=== PATIENT | male | born 1960 | race Two or more races ===

== ENCOUNTER 2019-01-24 14:43 | Emergency (ER) | payer OTHER ==
[~2019-01-24] VITALS: Ht 170.2 cm; Wt 117.9 kg
[~2019-01-24 14:43] MED LIST: ADULT ASPIRIN81 MG; BISOPROLOL-HCT1 EAC2; CIPRO500 MG PO; CRESTOR5 MG; FIORICET 50-301 EACH PO; IRBESARTAN150 MG; JANUMET XR 50-1 EAC1; KETO10TA2 PO; OMEGA-3 + D SO1 EACH; OMEPRAZOLE20 MG; TRIAMTERENE-HC1 EAC3
== END 2019-01-24 17:53 | disposition home or self-care (01) ==
LOC: ER 14:43
DX: T78.49XA Other allergy, initial encounter (principal); L29.8 Other pruritus

== ENCOUNTER 2019-01-29 02:03 | Emergency (ER) | payer OTHER ==
[~2019-01-29] VITALS: Ht 170.2 cm; Wt 117.9 kg
[2019-01-29] MEDS ORDERED: JANUMET 50-1,01 EACH (02:22)
[2019-01-29] MEDS ORDERED: LOVAZA1 GM (02:22)
[2019-01-29] MEDS ORDERED: OMEPRAZOLE10 MG (02:22)
[2019-01-29] MEDS ORDERED: CRESTOR5 MG (02:23)
[2019-01-29] MEDS ORDERED: ZIAC 2.5-6.251 EACH (02:23)
[2019-01-29] MEDS ORDERED: AVAPRO75 MG (02:24)
[2019-01-29] MEDS ORDERED: ADULT ASPIRIN81 MG (02:25)
[2019-01-29] MEDS ORDERED: TRIAMTERENE-HC1 EAC3 (02:25)
[2019-01-29] MEDS ORDERED: PEPCID AC20 MG PO (08:20)
[2019-01-29] MEDS ORDERED: PHENERGAN25 MG PO (08:20)
== END 2019-01-29 09:19 | disposition home or self-care (01) ==
LOC: ER 02:03
DX: K52.9 Noninfective gastroenteritis and colitis, unspecified (principal)

== ENCOUNTER → 2021-06-27 | Emergency (ER) | payer OTHER ==
[~2021-06-27] VITALS: Ht 170.2 cm; Wt 113.4 kg
[~2021-06-27] MED LIST changes: +AVAPRO75 MG; +JANUMET 50-1,01 EACH; +LOVAZA1 GM; +OMEPRAZOLE10 MG; +PEPCID AC20 MG PO; +PHENERGAN25 MG PO; +ZIAC 2.5-6.251 EACH
== END | disposition home or self-care (01) ==
LOC: ER 18:22
DX: B34.9 Viral infection, unspecified (principal); E86.0 Dehydration; R11.10 Vomiting, unspecified

== ENCOUNTER 2021-09-13 08:00 | Outpatient (CLI) | payer OTHER | END 2021-09-13 08:46 | disposition home or self-care (01) | LOC: PPH VACUNA 08:00 | PROVIDERS: ATTEND Emergency Medicine Pediatric Emergency Medicine | DX: Z23 Encounter for immunization (principal) ==

== ENCOUNTER 2021-10-24 09:36 | Emergency (ER) | payer OTHER ==
[~2021-10-24] VITALS: Ht 170.2 cm; Wt 108.9 kg
== END 2021-10-24 12:23 | disposition home or self-care (01) ==
LOC: ER 09:36
DX: J30.9 Allergic rhinitis, unspecified (principal); B34.9 Viral infection, unspecified

== ENCOUNTER 2022-08-02 09:31 | Outpatient (CLI) | payer OTHER | END 2022-08-02 10:17 | disposition home or self-care (01) | LOC: LAB 09:31 | PROVIDERS: ATTEND Orthopaedic Surgery | DX: D64.9 Anemia, unspecified (principal); E88.9 Metabolic disorder, unspecified; D68.8 Other specified coagulation defects; N39.0 Urinary tract infection, site not specified; A49.02 Methicillin resistant Staphylococcus aureus infection, unspecified site; E11.9 Type 2 diabetes mellitus without complications; I49.9 Cardiac arrhythmia, unspecified; I10 Essential (primary) hypertension; Z76.89 Persons encountering health services in other specified circumstances ==

== ENCOUNTER 2023-10-17 11:20 | Outpatient (CLI) | payer OTHER | END 2023-10-17 11:37 | disposition home or self-care (01) | LOC: MRI 11:20 | PROVIDERS: ATTEND Orthopaedic Surgery | DX: S83.201A Bucket-handle tear of unspecified meniscus, current injury, left knee, initial encounter (principal); M25.561 Pain in right knee; M25.562 Pain in left knee | CPT/HCPCS: 73721 ==

== ENCOUNTER 2025-03-01 00:32 | Emergency (ER) | payer OTHER ==
[~2025-03-01] VITALS: Ht 170.2 cm; Wt 108.9 kg
[2025-03-01] MEDS ORDERED: JARDIANCE25 MG PO (01:03)
[2025-03-01] MEDS ORDERED: LEVO-T50 MCG PO (01:04)
[2025-03-01] MEDS ORDERED: METFORMIN HCL1000 M3 PO (01:04)
[2025-03-01] MEDS ORDERED: HYOSCYAMINE SULFATE 0.125 MG TAB.SUBL SL ONE (02:00)
[2025-03-01] MEDS ORDERED: KETOROLAC TROMETHAMINE 30 MG VIAL IV STA (02:00)
[2025-03-01] MEDS ORDERED: HYOSCYAMINE SULFATE 0.125 MG TAB.SUBL ONE (02:02)
[2025-03-01] MEDS ORDERED: KETOROLAC TROMETHAMINE 30 MG VIAL ONE (02:02)
[2025-03-01 02:37] LABS: HEMATOCRIT 43.8 % (39.0-48.0); HEMOGLOBIN 14.7 g/dL (13-16.00); MEAN CELL VOLUME 99.3 fL (80.0-100.00); MEAN CORPUSCULAR HEMOGLOBIN 33.4 pg (27.00-32.0); MEAN CORPUSCULAR HGB CONC 33.7 g/dl (32.0-36.0); PLATELET COUNT 246 K/uL (150-450); RED BLOOD COUNT 4.41 M/uL (4.00-6.00); RED CELL DISTRIBUTION WIDTH 14.3 % (11.5-14.5)
[2025-03-01] MEDS ORDERED: MORPHINE SULFATE 4 MG/ML VIAL IV STA (03:42)
== END 2025-03-01 06:51 | disposition home or self-care (01) ==
LOC: ER 00:33
DX: R10.9 Unspecified abdominal pain (principal); Z20.822 Contact with and (suspected) exposure to COVID-19; E11.9 Type 2 diabetes mellitus without complications; Z79.84 Long term (current) use of oral hypoglycemic drugs
CPT/HCPCS: 36415; 74022; 74176; 96365; 99284; J1885; J2270

== ENCOUNTER 2025-03-03 15:53 | Emergency (ER) | payer OTHER ==
[~2025-03-03] VITALS: Ht 373.4 cm; Wt 108.9 kg
[~2025-03-03 15:53] MED LIST changes: +JARDIANCE25 MG PO; +LEVO-T50 MCG PO; +METFORMIN HCL1000 M3 PO
[2025-03-03] MEDS ORDERED: MORPHINE SULFATE 4 MG/ML VIAL IV ONE (17:30)
[2025-03-03] MEDS ORDERED: KETOROLAC TROMETHAMINE 60 MG VIAL IM ONE ×2 (17:30→17:46)
[2025-03-03 18:04] LABS: HEMATOCRIT 45.5 % (39.0-48.0); HEMOGLOBIN 15.9 g/dL (13-16.00); MEAN CELL VOLUME 97.3 fL (80.0-100.00); MEAN CORPUSCULAR HEMOGLOBIN 33.9 pg (27.00-32.0); MEAN CORPUSCULAR HGB CONC 34.9 g/dl (32.0-36.0); PLATELET COUNT 261 K/uL (150-450); RED BLOOD COUNT 4.67 M/uL (4.00-6.00)
[2025-03-03 18:29] LABS: ALBUMIN 3.7 gm/dL (3.4-5.0); BILIRUBIN TOTAL 0.29 mg/dL (0.3-1.2); CALCIUM 9.8 mg/dL (8.5-10.1); CREATININE SERUM 1.21 mg/dL (0.70-1.30); GFR 60.18; POTASSIUM 4.67 mEq/L (3.5-5.1); TOTAL PROTEIN 7.7 gm/dL (6.4-8.2)
[2025-03-03] MEDS ORDERED: DICLOFENAC SODI75 MG PO (20:50)
[2025-03-03] MEDS ORDERED: TUSNEL LIQUID178 ML PO (21:11)
== END 2025-03-03 21:21 | disposition home or self-care (01) ==
LOC: ER 15:54
PROVIDERS: General Practice
DX: M94.0 Chondrocostal junction syndrome [Tietze] (principal)

== ENCOUNTER 2025-03-07 12:13 | Outpatient (CLI) | payer OTHER ==
[~2025-03-07 12:13] MED LIST changes: +DICLOFENAC SODI75 MG PO; +TUSNEL LIQUID178 ML PO
== END 2025-03-07 12:23 | disposition home or self-care (01) ==
LOC: SONOGRAMA 12:13
PROVIDERS: ATTEND Internal Medicine
DX: R10.9 Unspecified abdominal pain (principal)

== ENCOUNTER 2025-03-10 12:34 | Outpatient (CLI) | payer OTHER | END 2025-03-10 12:37 | disposition home or self-care (01) | LOC: RAD 12:34 | DX: R10.11 Right upper quadrant pain (principal) ==

== ENCOUNTER 2025-07-08 06:53 | Emergency (ER) | payer OTHER ==
[~2025-07-08] VITALS: Ht 170.2 cm; Wt 108.9 kg
[2025-07-08] MEDS ORDERED: GRALISE600 MG PO (07:23)
== END 2025-07-09 10:09 | disposition left against medical advice (07) ==
LOC: ER 06:53
DX: Z53.21 Procedure and treatment not carried out due to patient leaving prior to being seen by health care provider (principal)

== ENCOUNTER 2025-07-15 12:55 | Outpatient (CLI) | payer OTHER ==
[~2025-07-15 12:55] MED LIST changes: +GRALISE600 MG PO
== END 2025-07-15 12:57 | disposition home or self-care (01) ==
LOC: MRI 12:55
PROVIDERS: ATTEND Internal Medicine
DX: M25.561 Pain in right knee (principal)
CPT/HCPCS: 73721